=== PATIENT | male | born 1995 | race Caucasian/White ===

== ENCOUNTER 2018-02-18 06:31 | Emergency (ER) | payer OTHER, MEDICAID ==
[2018-02-18 06:58] LABS: ADD MAN DIFF? NO
[2018-02-18] MEDS: LEVETIRACETAM 1000 MG (PMX) 100 ML IVPB (06:58)
[2018-02-18] MEDS: HYDROmorphONE 1 MG/ML SYG IV (06:58)
[2018-02-18] MEDS: ONDANSETRON 4 MG INJ IV (06:58)
[2018-02-18 07:02] LABS: BASOPHIL # 0.1 10^3/ul (0.0-0.1); BASOPHILS % 0.6 % (0.0-2.0); EOSINOPHILS # 0.3 10^3/ul (0.0-0.5); HEMATOCRIT 44.1 % (42.0-52.0); HEMOGLOBIN 15.1 g/dl (14.0-18.0); LYMPHOCYTES # 4.3 10^3/ul (0.8-2.9); LYMPHOCYTES % 40.1 % (15.0-51.0); MEAN CORPUSCULAR HEMOGLOBIN 29.8 pg (29.0-33.0); MEAN CORPUSCULAR HGB CONC 34.2 g/dl (32.0-37.0); MEAN CORPUSCULAR VOLUME 87.2 fl (82.0-101.0); MEAN PLATELET VOLUME 10.1 fl (7.4-10.4); MONOCYTE # 0.8 10^3/ul (0.3-0.9); MONOCYTES % 7.6 % (0.0-11.0); NEUTROPHILS % 46.8 % (39.0-77.0); PLATELET COUNT 259 10^3/UL (140-415); RED BLOOD COUNT 5.06 10^6/ul (4.70-6.10); RED CELL DISTRIBUTION WIDTH 11.5 % (11.5-14.5)
[2018-02-18 07:02] LABS: WHITE BLOOD COUNT 10.7 10^3/ul (4.8-10.8)
[2018-02-18 07:18] LABS: ALANINE AMINOTRANSFERASE 57 IU/L (13-69); ALBUMIN 4.7 g/dl (3.3-4.9); ALKALINE PHOSPHATASE 89 IU/L (42-121); ANION GAP 20 (5-13); ASPARTATE AMINO TRANSFERASE 42 IU/L (15-46); BILIRUBIN,INDIRECT 0.2 mg/dl (0-1.1); BILIRUBIN,TOTAL 0.2 mg/dl (0.2-1.3); BLOOD UREA NITROGEN 13 mg/dl (7-20); CALCIUM 9.4 mg/dl (8.4-10.2); CARBON DIOXIDE 25 mmol/L (21-31); CHLORIDE 101 mmol/L (97-110); Estimated GFR > 60 mL/min (>60); GLUCOSE 112 mg/dl (70-220); POTASSIUM 3.9 mmol/L (3.5-5.1); SODIUM 146 mmol/L (135-144); TOTAL PROTEIN 8.3 g/dl (6.1-8.1)
[2018-02-18] MEDS: PROPOFOL 200 MG INJ IV (08:24)
[2018-02-18] MEDS: SOD CHLORIDE 0.9% 1,000 ML IV (09:08)
[2018-02-18 09:26] LABS: AMPHETAMINE/METHAMPHETAMINE Negative (NEGATIVE); BARBITURATES Negative (NEGATIVE); BENZODIAZEPINES Negative (NEGATIVE); COCAINE Negative (NEGATIVE)
[2018-02-18 09:29] LABS: CANNABINOIDS Positive (NEGATIVE); OPIATES Positive (NEGATIVE)
== END 2018-02-18 10:12 | disposition home or self-care (01) ==
LOC: E/R 06:31
DX: S43.005A Unspecified dislocation of left shoulder joint, initial encounter (principal); R40.2142 Coma scale, eyes open, spontaneous, at arrival to emergency department; R40.2362 Coma scale, best motor response, obeys commands, at arrival to emergency department; R40.2252 Coma scale, best verbal response, oriented, at arrival to emergency department; R56.9 Unspecified convulsions; W18.39XA Other fall on same level, initial encounter; Y92.89 Other specified places as the place of occurrence of the external cause
CPT/HCPCS: 23650; 36415; 70450; 73030; 80053; 80307; 85025; 94770; 96374; 96375; 99291-25

== ENCOUNTER 2018-07-26 16:04 | Emergency (ER) | payer OTHER ==
[2018-07-26] MEDS: CEPHALEXIN 500 MG CAP PO (17:07)
== END 2018-07-26 17:56 | disposition home or self-care (01) ==
LOC: FTE 17:56
DX: N31.9 Neuromuscular dysfunction of bladder, unspecified (principal); Q05.9 Spina bifida, unspecified; N39.0 Urinary tract infection, site not specified
CPT/HCPCS: 87086; 99283